=== PATIENT | female | born 1970 | race Caucasian/White ===

== ENCOUNTER 2017-01-06 08:10 | Day surgery (SDC) | payer BC ==
--- OUTSIDE RECORDS SUMMARY | 2017-01-06 08:14 | XMS REPORT | Continuity of Care Document ---
:1970 Author Organization [facility] ([facility]) Address [address] [place] [address] Phone [phone] Care Team Providers Name Role Phone Jose Roberto Wall Primary Care Provider [phone] Source Comments This disclosure is being made pursuant to the Care Everywhere program, applicable federal and state laws, and may not contain all informaitonavailable regarding this patient.[facility] ([facility]) Active Allergies and Adverse Reactions Allergen Noted Date Severity Reactions Comments Codeine Nausea & Vomiting Sulfamethoxazole Urticaria (Hives),Angioedema Trimethoprim Urticaria (Hives),Angioedema Current Medications Prescription Sig. Disp. Refills Start Date End Date Status MULTIVITAMIN PO Take by mouth Active daily. [place]-3 Fatty Take by mouth. Active Acids-Vitamin E (FISH OIL) 1,000 mg Cap GLUC ANDRADE/CHONDRO ANDRADE Take by mouth. Active A/VIT C/MN (GLUCOSAMINE CHONDROITIN MAXSTR PO) ibuprofen (MOTRIN) Take 1 Tab by 60 Tab 3 07/21/2012 Active 600 mg tablet mouth every 6 hours as needed. Indications: PAIN IRON, FERROUS Take 1 Tab by Active SULFATE, PO mouth daily. escitalopram Take 1 tablet 90 tablet 3 01/29/2016 Active oxalate 10 mg (10 mg total) tablet by mouth daily. buPROPion Take 1 tablet 90 tablet 3 04/09/2016 Active (WELLBUTRIN XL) (300 mg total) 300 mg extended by mouth every release tablet 24 morning. hour busPIRone 30 mg Take 1 tablet 180 tablet 3 04/09/2016 Active tablet (30 mg total) by mouth 2 times daily. buPROPion Take 1 tablet 90 tablet 3 04/28/2016 Active (WELLBUTRIN XL) (150 mg total) 150 mg extended by mouth every release tablet 24 morning. total hour daily dose 450 mg lansoprazole 30 mg Take 30 mg by Active capsule mouth every 48 hours. Alternates with Famotidine polyethylene Take 17 g by 1020 g 11 05/07/2016 Active glycol 3350 mouth 2 times (MIRALAX) 17 daily. gram/dose powder gabapentin 300 mg 1 with dinner. 360 capsule 3 06/11/2016 Active capsule 2-3 bedtime. clonazePAM 1 mg Take 1-2 60 tablet 2 08/29/2016 Active tablet tablets (1-2 mg total) by mouth at bedtime. linaclotide Take 1-2 60 capsule 5 10/02/2016 Active (LINZESS) 145 mcg capsules capsule (145-290 mcg total) by mouth every morning before breakfast. famotidine 40 mg Take 1 tablet 60 tablet 11 10/29/2016 Active tablet (40 mg total) by mouth 2 times daily. RESTASIS 0.05 % 11/04/2016 Active ophthalmic emulsion hydrOXYzine Take 1-2 40 capsule 0 11/05/2016 Discontinued pamoate (VISTARIL) capsules (25-50 7 25 mg capsule mg total) by mouth 4 times daily as needed for muscle spasm/pain. docusate (COLACE) Take 1 capsule 60 capsule 0 11/05/2016 Discontinued 100 mg capsule (100 mg total) 7 by mouth 2 times daily as needed for constipation. aspirin 325 mg EC Take 1 tablet 14 tablet 0 11/05/2016 Discontinued tablet (325 mg total) 7 by mouth daily to help prevent clot formation. HYDROcodone-acetam Take 1-2 20 tablet 0 11/17/2016 Discontinued inophen 5-325 mg tablets by 7 per tablet mouth every 6 hours as needed for Pain. Active Problems Problem Noted Date Encounter related to worker's compensation claim - Right knee 11/17/2016 11/05/16 Right knee arthroscopy, meniscus debridement 11/17/2016 PONV (postoperative nausea and vomiting) 11/05/2016 Right knee pain 10/06/2016 S/P cholecystectomy 12/27/2015 Overview: 3 Constipation 04/13/2014 Bereavement, uncomplicated 05/23/2013 Overview: of maternal grandmother, 05-13-13 Generalized anxiety disorder 04/15/2013 Overview: See diagnostic evaluation dated 04-15-13. Irritable bowel syndrome 04/15/2013 Restless legs syndrome (RLS) 04/15/2013 Vaginal burning 07/29/2012 Abdominal pain 07/29/2012 Overview: Extensive evaluation 2004 at [place] reported negative. 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 Tear of medial cartilage or meniscus of knee, current 07/04/2005 Primary localized osteoarthrosis, lower leg 06/18/2005 Resolved Problems Problem Noted Date Resolved Date SURGERY FOLLOWUP NOS 09/20/2005 05/23/2013 Most Recent Encounters Date Type Specialty Providers Description 12/18/2016 Office Visit Orthopedics Edgar Shahid Dx: 11/05/16 Right MD [place] knee arthroscopy, meniscus debridement (Primary Dx) 11/17/2016 Office Visit Psychiatry Zeke Newberry, Dx: Generalized PA-C anxiety disorder (Primary Dx) 11/17/2016 Office Visit Psychiatry Zeke Newberry, Chief Comp: Patient PA-C Reported Reason For Visit 11/17/2016 Office Visit Orthopedics Edgar Shahid Subj: Appointment MD [place] Scheduled 11/17/2016 Office Visit Orthopaedic Edgar Shahid Dx: Encounter MD Alva related to worker's Cherrie Meza, compensation claim - [employer] Right knee (Primary Dx) 11/06/2016 Nurse Triage Ambulatory Surgery Unique Estrada, Chief Comp: Post-op RN Follow-up Call 11/05/2016 Office Visit Psychiatry Zeke Newberry, Chief Comp: Patient PA-C Reported Reason For Visit 11/05/2016 Pharmacy Visit 11/05/2016 Surgery Ambulatory Surgery Edgar Shahid ARTHROSCOPY KNEE MD [place] 11/04/2016 Anesthesia Event Ambulatory Surgery Henrietta Nicole CRNA 10/29/2016 Office Visit Med GI/Hepatology Omar Tena, Dx: Windy NEFF (Primary Dx) Ada Bradley PA-Jo Ann Immunizations Name Dates Previously Given Next Due Influenza, unspecified 06/06/2013 Social History Tobacco Use Types Packs/Day Years Used Date Never Smoker Smokeless Tobacco: Never Used Tobacco Cessation:Counseling Given: Yes Comments: Alcohol Use Drinks/Week oz/Week Comments Yes 4 Standard drinks or equivalent 1 small pitcher of Moses every Thursday Last Filed Vital Signs Vital Sign Reading Time Taken Blood Pressure 118/75 11/17/2016 1:20 PM CDT Pulse 68 11/17/2016 1:20 PM CDT Temperature 35.2 C (95.4 F) 11/17/2016 8:32 AM CDT Respiratory Rate 16 11/05/2016 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 Height 1.626 m (5' 4") 11/17/2016 8:32 AM CDT Weight 59.5 kg (131 lb 2.8 oz) 11/17/2016 1:19 PM CDT Body Mass Index 22.5 11/17/2016 1:19 PM CDT Oxygen Saturation 99% 11/05/2016 3:30 PM [employer] PRODUCE W[employer]ER Plan of Care Date Type Specialty Providers Description 05/06/2017 Appointment Med GI/Hepatology Omar Tena MD [address] [place] [address] [phone] (Fax) Subj: Appointment Ada Bradley PA-C [address] [place] [address] [phone] (Fax) Scheduled 05/19/2017 Appointment Psychiatry Zeke Newberry PA-C Chief Comp: Patient [address] [facility] [place] [address] Visit [phone] (Fax) Health Maintenance Due Date Last Done Comments Hepatitis B Vaccine (1 of 3 - Primary Series) 1970 Tdap Vaccine 1982 Lipid Disorder Screening 1989 MMR Vaccine 1989 Td Vaccine 1989 Cervical Cancer Screening 2001 Mammogram 2011 Influenza Vaccine: Seasonal (Season Ended) 2017 06/06/2013 Procedures from Last 3 Months Procedure Name Priority Date/Time Associated Comments Diagnosis ABSTRACTED BY BILLING Routine 11/05/2016 1:38 Right knee pain Results for this STAFF PM [employer]ODU[employer] procedure are in the results section. ARTHROSCOPY: KNEE Routine 11/05/2016 1:38 Right knee pain Results for this SURGICAL; WITH PM [employer]ODU[employer]ER procedure are in MENISCECTOMY (MEDIAL the results OR LATERAL INCLUDING section. ANY MENISCAL SHAVING) ARTHROSCOPY: KNEE Routine 11/05/2016 1:38 Right knee pain Results for this SURGICAL; ABRASION PM [employer]ODUCE W[employer]ER procedure are in ARTHROPLASTY (INCLUDES the results CHONDROPLASTY WHERE section. 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 MENISCAL STITCHER Results from Last 3 Months ORT OR CASE (11/05/2016 1:38 PM) Narrative Edgar Shahid MD 11/05/20161:38 PM Post-Op Procedure Note Operation/Procedure: Procedure(s) (LRB): ARTHROSCOPY KNEE (Right) General Information: Date: 11/05/16 Time: 1236 Location: [facility] OR Room: [facility] OR Service: Orthopaedics Log ID: [id number] Surgeon: Surgeon(s) and Role: * Edgar Shahid MD - Primary * Markus Vang MD - Resident - Assisting * Cherrie Lieberman - Assisting Staff Information: Circulating Nurse: Portia Pompa RN Vice President Compliance- Scrub: Shawnee Davis Anesthesia: General Findings: No Unusual Findings Blood Loss: Minimal Tourniquet Time: Total Tourniquet Time Documented: Thigh-padded (Right) - 32 minutes Total: Thigh-padded (Right) - 32 minutes Implants: * No implants in log * Specimens: * No specimens in log * Complications: None, patient tolerated the procedure well Condition: Stable Operative Report Completion Indications: Dulce Maria presented to our office with medial knee pain after a work injury and physical exam correlated with MRI findings of a medial meniscus tear. We discussed non-op and operative options and the patient wished to proceed with surgery.she understood that partial menisectomy would not address pain from early arthritis. Risks, benefits, expected outcomes, alternative treatment options were discussed with the patient at length. Risks include, but are not limited to, infection, stiffness, continued pain, injury to nerves or vessels, instability, weakness, blood clots, cardiovascular/pulmonary issues, numbness, and although extremely rare, loss of limb or life. After the discussion, patient seemed to understand and agreed to proceed with scheduling surgery as the potential benefits of surgery clearly outweigh the risks associated with it. Description of Procedure: Patient was transferred to the operating room after pre-operative clearance by anesthesia physicians. patient received pre-operative antibiotics and was positioned supine on the operating table. Anesthesia was induced. Bony prominences were all padded. Exam under anesthesia revealed: Stable cruciate and collateral ligaments, full ROM Tourniquet was applied. Contralateral leg was placed in well-leg fry at the level of the heart, well padded, and DVT prophylaxis was employed. The patient was prepped and draped in the usual sterile fashion. Surgical time-out was performed to confirm operative site and other safety measures according to the checklist. Surgical anatomy was drawn on the skin with a sterile marking pen. Esmarch was used to exsanguinate the leg and tournaquet was inflated to 250 mm Hg. Vertical lateral and medial arthroscopy portal were established. Diagnostic arthroscopic exam revealed: 1- PF joint: normal tracking, intact cartilage on patella, full thickness 8 x 8 mm defect central trochlea 2-Medial compartment: intact cartilage 3-Medial meniscus: horiz degen medial meniscus tear 4-Lateral compartment: normal 5-lateral meniscus: intact 6-ACL: intact 7-PCL: intact 8-synovium: normal Instruments and the shaver were used to debride the medial meniscal tear to a smooth surface. There were no flaps or loose fragments. We did a microfracture technique to the central trochlear defect using curettes and awl. Portal sites were closed. Tourniquet was let down. Ropivacaine was injected. Dressings were placed. Patient was transferred to pacu in stable condition. I spent 5-10 minutes talking with the patient's family or friends after surgery- we discussed the surgery, went over our post-op sheet, warned off potential concerns, discussed restrictions, and told them exactly what number to call with any questions or concerns to get a hold of our nurse. Post-op Plan: Full ROM, WBAT, return in 2 weeks. Disposition: Outpatient Attending Attestation: I was present for and participated in the essential part of the procedure which included partial menisectomy and microfrature. Edgar Shahid MD URINE , POINT OF CARE (11/05/2016) Component Value Range POC URINE Negative POC TRANSIT VEHICLE INSPECTOR Satisfactory
--- NOTE | 2017-01-06 08:42 | OR ---
Anesthesia Procedure Note - Anesthesia Procedure Note Date of Service: 01/06/17 Narrative: Vital Signs - Last Taken Temp 36.4 C L 01/06/17 08:21 Pulse 55 L 01/06/17 08:21 Resp 16 01/06/17 08:21 BP 108/68 01/06/17 08:21 Pulse Ox 96 01/06/17 08:21 O2 Oxygen Delivery Method Room Air 01/06/17 08:39 Anesthesia Pre Procedure Evaluation DATE: 01/06/2017 TIME: INDICATIONS: Severe six-week onset of headaches, abnormal MRI PAST MEDICAL HISTORY: Ms. Larsen has had a sudden onset of severe headaches which are near continuous for the past 6 weeks. Medication has been of little relief and during investigation of the source of headaches and abnormality on the MRI was found. She has had no previous history of lumbar punctures EXAM: Heart S1-S2 regular; lungs clear bilaterally ASSESSMENT OF MEDICAL STATUS: Appropriate candidate for lumbar puncture PLANNED PROCEDURE: Lumbar puncture for diagnosis
--- NOTE | 2017-01-06 09:25 | OR ---
Anesthesia Procedure Note - Anesthesia Procedure Note Date of Service: 01/06/17 Narrative: Vital Signs - Last Taken Temp 36.4 C L 01/06/17 08:21 Pulse 55 L 01/06/17 08:21 Resp 16 01/06/17 08:21 BP 108/68 01/06/17 08:21 Pulse Ox 96 01/06/17 08:21 O2 Oxygen Delivery Method Room Air 01/06/17 09:20 ANESTHESIA PROCEDURE NOTE Date of Procedure: 01/06/2017 Time of procedure: 50. Performed by: BARBARA De La Rosa CRNA, MSN Slasher Tender Helper: Shari Merritt RN. Preprocedure diagnosis: Headaches changes in MRI. Post procedure diagnosis: Same. Procedure: Lumbar Puncture L4 5. Indications: Headaches, changes in MRI. Findings: See below. Details of the procedure: The patient was placed in right lateral position the back was prepped with Duraprep and draped in a sterile fashion. The L4 5 interspace was localized with 1% lidocaine solution. Using a #22-gauge Pascual needle the CSF was contacted and clear CSF returned. The opening pressure measured 8.8 centimeters water pressure. 4 vials of CSF were harvested. The spinal needle was then removed and a Band-Aid was applied. EBL: Minimal. Fluids: N/A. Specimen:3vials of clear CSF2 milliliters each, 1 vial of CSF with 7 mL. Post procedure condition: The patient tolerated the procedure well. No complications were noted. Thank you for this consultation. Tenzin Martinez CRNA, ARNP, MSN
[2017-01-06 09:51] LABS: CSF Appearance Clear (CLEAR); CSF Color Colorless (COLORLESS); CSF RBC 19 /uL (0-10); CSF WBC 0 /uL (0-10)
[2017-01-06 09:52] LABS: CSF Appearance Clear (CLEAR); CSF Color Colorless (COLORLESS); CSF Differential Comment Tube #1
[2017-01-06 09:53] VITALS: BP 115/65
[2017-01-06 09:53] LABS: CSF Differential Comment Tube #3; CSF RBC 3 /uL (0-10); CSF WBC 0 /uL (0-10)
[2017-01-07 14:05] LABS: Cryptococcal Antigen Source CEREBROSPINAL FLUID
[2017-01-07 19:25] LABS: Cryptococcal Antigen Screen NOT DETECTED (NOT DETECTED)
[2017-01-09 19:58] LABS: HSV 1 DNA NOT DETECTED
[2017-01-09 20:36] LABS: ACE 43 U/L (9-67); CSF Oligoclonal Bands NO BANDS (NO BANDS); HSV 2 DNA NOT DETECTED; WNV IgG Ab <1.30 index
[2017-01-09 21:39] LABS: CSF IgG Synthesis -2.1 mg/24 h (-9.9 TO +3.3)
[2017-01-10 05:00] LABS: CSF IgG Index 0.5
== END 2017-01-06 08:11 | disposition home or self-care (01) ==
LOC: AMB 08:10
PROC: 009U3ZX Drainage of Spinal Canal, Percutaneous Approach, Diagnostic (ICD-10-PCS; principal; 2017-01-06 09:15)
DX: R51 Headache (principal); Z68.20 Body mass index [BMI] 20.0-20.9, adult

== ENCOUNTER 2017-04-24 12:17 | Day surgery (SDC) | payer BC ==
--- NOTE | 2017-04-24 13:23 | OR ---
Anesthesia Pre Procedure Eval Pre Procedure Evaluation: Last Vital Signs Temp 36.5 C 04/24/17 12:27 Pulse 61 04/24/17 12:27 Resp 16 04/24/17 12:27 BP 116/70 04/24/17 12:27 Pulse Ox 96 04/24/17 12:27 PRE PROCEDURE EVALUATION:: DATE: 04/24/2017 TIME: 1315 INDICATIONS: Bilateral occipital neuralgia PAST MEDICAL HISTORY: No previous occipital nerve blocks EXAM: Lungs clear and equal. Heart rate regular. Patient complains of headaches and an nonradicular cervical pain. ASSESSMENT OF MEDICAL STATUS: Procedure risks and benefits were explained to and accepted by the patient. No contraindication to occipital nerve block. PLANNED PROCEDURE : Bilateral occipital nerve block. Home Medications: HOME MEDICATIONS Bupropion HCl [Wellbutrin Xl] 300 mg PO DAILY 01/05/17 [Last Taken Unknown] Gluc [place]/Chondro [place]reaga A/Vit C/Mn [Glucosamine Chondroitin Tab] 1 each PO DAILY 04/16 [Last Taken Unknown] Linaclotide [Linzess] 290 mcg PO DAILY 01/05/17 [Last Taken Unknown] Multivitamins [Multivitamin Jenifer] 1 cap PO DAILY 01/05/17 [Last Taken Unknown] [place]-3 Fatty Acids/Fish Oil [Fish Oil 1,000 mg Capsule] 1 each PO DAILY [Last Taken Unknown] clonazePAM [Klonopin] 0.5 mg PO PRN 01/05/17 [Last Taken Unknown]
[2017-04-24] MEDS ORDERED: LIDOCAINE HCL/EPINEPHRINE 30 ML VIAL IJ ONE (13:35)
[2017-04-24] MEDS ORDERED: DEXAMETHASONE SOD PHOSPHATE 10 MG/ML VIAL IJ ONE (13:35)
[2017-04-24] MEDS ORDERED: BUPIVACAINE HCL 50 ML VIAL IJ ONE (13:35)
--- NOTE | 2017-04-24 13:41 | OR ---
Anesthesia Procedure Note - Anesthesia Procedure Note Narrative: Vital Signs - Last Taken Temp 36.5 C 04/24/17 12:27 Pulse 61 04/24/17 12:27 Resp 16 04/24/17 12:27 BP 116/70 04/24/17 12:27 Pulse Ox 96 04/24/17 12:27 04/24/17 13:37 ANESTHESIA PROCEDURE NOTE Date of procedure: 04/24/2017. Time of procedure: 1325. Performed by: [employer] CRNA Dialysis Technician: Ml Maharaj RN . Preprocedure diagnosis: Bilateral occipital neuralgia. Post procedure diagnosis: Same. Procedure: Bilateral occipital nerve block Indications: Headaches. Nonradicular cervical pain. Findings: Patient was brought to operating room #[address] in the sitting position. Skin area over bilateral occipital fossa prepped with alcohol. Skin was infiltrated with 0.5 mL of 1% Xylocaine over occipital fossa bilaterally. A total of 4.5 mL of 0.5% Marcaine plain along with 5 mg of dexamethasone was infiltrated using a fanlike technique bilaterally over occipital fossa. EBL: Minimal. Fluids: N/A. Specimen: N/A. Post procedure condition: The patient tolerated the procedure well. No complications were noted. Thank you for this consultation [employer] CRNA
[2017-04-24 15:03] VITALS: BP 120/75
== END 2017-04-24 12:18 | disposition home or self-care (01) ==
LOC: AMB 12:17
PROVIDERS: ATTEND Student in an Organized Health Care Education/Training Program
PROC: 3E0T33Z Introduction of Anti-inflammatory into Peripheral Nerves and Plexi, Percutaneous Approach (ICD-10-PCS; 2017-04-24)
PROC: 3E0T3BZ Introduction of Anesthetic Agent into Peripheral Nerves and Plexi, Percutaneous Approach (ICD-10-PCS; principal; 2017-04-24 13:15)
DX: M54.81 Occipital neuralgia (principal); Z68.20 Body mass index [BMI] 20.0-20.9, adult